=== PATIENT | male | born 1950 | race Caucasian/White ===

== ENCOUNTER → 2024-04-18 06:23 | Day surgery (SDC) | payer MEDICARE, OTHER, SELFPAY | LOC: GI 06:23 | PROVIDERS: ATTENDING PHYSICIAN Internal Medicine Gastroenterology | DX: Z12.11 Encounter for screening for malignant neoplasm of colon (principal); Z53.8 Procedure and treatment not carried out for other reasons; K40.90 Unilateral inguinal hernia, without obstruction or gangrene, not specified as recurrent; K57.30 Diverticulosis of large intestine without perforation or abscess without bleeding | CPT/HCPCS: G0121 ==

== ENCOUNTER 2024-06-14 06:37 | Day surgery (SDC) | payer MEDICARE, OTHER, SELFPAY ==
[2024-06-14] VITALS (11 sets, daily range): BP systolic 122–170; BP diastolic 69–94; BMI 25.8
[2024-06-14] MEDS: TYLENOL 1000 MG PO (10:17)
[2024-06-14] MEDS: NORMOSOL-R/PLASMALYTE-A 1000 IV (10:32)
--- NOTE | 2024-06-14 10:57 | W.SUR.PREOP ---
Pre-Operative Surgical Note
-
I have examined this patient prior to the performance of the scheduled procedure.
The patient's condition is unchanged from the time of the current History and
Physical and the patient is able to undergo the scheduled procedure.
--- NOTE | 2024-06-14 10:57 | HP.FOC2 ---
Focused History & Physical
Chief Complaint
HPI:
Chief Complaint: Left inguinal hernia
HPI / Indication for Planned Procedure:
Robotic left inguinal hernia repair with mesh
Relevant Past Medical History: Negative
Relevant Social History: Negative
Relevant Family History: Negative
Relevant Past Surgical History: Negative
Review of Systems
Review of Pertinent Systems: All Systems Negative
Medication
See Medication form for detailed medications: Yes
Medication List (including Herbals & OTC):
ezetimibe 10 mg tablet (Zetia) 10 mg PO DAILY 06/12/24
lisinopril 10 mg tablet 10 mg PO DAILY 06/12/24
metoprolol succinate 50 mg tablet,extended release 24 hr 50 mg PO DAILY 06/12/24
pravastatin 40 mg tablet 40 mg PO DAILY 06/12/24
tamsulosin 0.4 mg capsule 0.4 mg PO DAILY 06/12/24
Medications Reviewed: Yes
Allergies and Reactions
Patient has Allergies: Yes
Noted Allergies and Reactions:
Allergy/AdvReac Type Severity Reaction Status Date / Time
No Known Allergies Allergy Verified 06/14/24 10:09
Pertinent Physical Exam
All Other Systems: Negative
Head/Neck: Normal
Diagnosis / Assessment
This is a 73-year-old male with a mildly symptomatic left inguinal hernia containing colon which was preventing him from completing a colonoscopy
Plan / Procedure
Robotic left inguinal hernia repair with mesh
Anesthesia/Sedation to be done by Anesthesia Provider: Yes
--- NOTE | 2024-06-14 13:55 | W.IMMPOSTOP ---
Surgical Immed Post Op Note
-
Primary Surgeon: Al Zayas MD
Assisting Surgeon: None
Pre-op Diagnosis: Incarcerated left inguinal hernia
Post-op Diagnosis: Recurrent, incarcerated left inguinal hernia
Procedure Performed: Robotic recurrent incarcerated left inguinal hernia repair with mesh (CASSIDY approach)
Anesthesia Type: General
Specimen / Cultures: None
Estimated Blood Loss: 11 cc
Complications: None
Operative Findings: Recurrent left inguinal hernia with incarcerated sigmoid colon. Part of the sac was abandon onto his previous open mesh which was identified. Large aperture to the indirect inguinal space. No direct or femoral components. No
cord lipoma. Critical view of the MPO was achieved and then reinforced with an extra-large left Bard 3D max uncoated polypropylene mid weight mesh.
--- NOTE | 2024-06-14 13:57 | OR.RPT ---
Operative Report
Operative Report
Patient Name: Jax Canales
: 1950
Date of Operation: 06/14/2024
Preoperative Diagnosis: Incarcerated left inguinal hernia
Postoperative Diagnosis: Recurrent incarcerated left inguinal hernia
Procedure(s):
Robotic recurrent incarcerated left inguinal Hernia Repair with mesh, (CASSIDY approach)
Surgeon(s):
Dr. Zayas
Internet Consultant(s):
RAGINI Dee
Anesthesia: General
Estimated Blood Loss: 11 cc
Urine Output: None
Drains/Lines/Implants: XLarge 3D Max Bard mid weight uncoated polypropylene mesh
Specimens: None
Indication for surgery: This is a 73-year-old gentleman who presented to my clinic for evaluation of a large left inguinal hernia in the setting of prior appendectomy and a reported right inguinal hernia repair with mesh. His hernia was a mildly
symptomatic but large enough that it prevented completion of a colonoscopy so he was interested in surgical repair. The patient was noted to have an incarcerated but not strangulated left inguinal hernia on exam. Following review of therapeutic
options they have elected to undergo a minimally invasive repair.
Operative Findings: During the preparation of the surgical field, it was discovered the patient had a prior incision over the left groin consistent with a prior open repair. This was confirmed intraoperatively after identifying mesh. The patient
was noted to have a recurrent left inguinal hernia with incarcerated sigmoid colon. Part of the sac was abandon onto his previous open mesh which was identified. Large aperture to the indirect inguinal space. No direct or femoral components. No
cord lipoma. Critical view of the MPO was achieved and then reinforced with an extra-large left Bard 3D max uncoated polypropylene mid weight mesh.
Details of the operation:
The patient was brought to the Operating Room and placed in the supine position with the arms tucked. IV antibiotics were infused and Venodyne stockings placed. Following uneventful induction of general endotracheal anesthesia, an orogastric tube
were placed. The abdomen was prepped and draped in the usual sterile fashion. It was at this point identified an incision in the left groin consistent with her prior open repair. The abdomen was entered using a Veress technique which required 1
pass, pneumoperitoneum to 15 mmHg was obtained without difficulty. An 8mm trochar was passed through the abdominal wall roughly 20 cm cephalad to the inguinal canal. We then confirmed that no inadvertent injury was made while passing the trocar or
Veress needle. We then placed two additional 8 mm ports in the left upper and right upper quadrants. We then docked the robot with a Prograsper in the left hand port and monopolar scissors in the right. A large left indirect inguinal hernia
containing sigmoid colon was identified. We then began by creating a flap at the level of the ASIS laterally working our way medially to the medial umbilical fold. Staying onto the peritoneum we were able to circumferentially dissect around the
hernia sac and and peel it off of the underlying spermatic cord and testicular vessels, taking care to preserve them. We were able to free the sigmoid colon and reduce it. Medially we identified the midline pubis as well as Nimesh's ligament and
ensured to dissect 2 cm below the pubic rim over the bladder. After exposure of the entire myopectineal orifice we identified and reduced: A very large indirect inguinal hernia, no direct inguinal hernia, no femoral hernia, and no cord lipoma.
Part of the hernia sac was tethered to the previous mesh this was left behind and in an 'abandon the sac' fashion after confirming preservation of the spermatic cord and testicular vessels.
We then fixated an X-large 3D max mesh with a 2-0 Vicryl stitch at coopers medially and superior laterally. The flap was then closed with a running 2-0 barbed monocryl suture ensuring that the tail was cut flush with the medial fat pad so that no
barbs were exposed part of the redundant hernia sac was tethered up to the. Flap closure to decrease the space. During the closure of the flap an Angiocath was inserted and 20 cc of quarter percent Marcaine was instilled. The area in the
flap cavity was then evacuated of air confirming that the mesh was flush and there were no folds. A small rent in the peritoneum was noted and closed with 2-0 Vicryl. All needles and instruments were then removed and the robot was undocked. The
abdomen was then desufflated, and pneumoperitoneum evacuated. All skin sites were then closed with 4-0 Monocryl followed by Dermabond. Counts were correct and overall, the patient tolerated the procedure well and was taken to the Recovery Room
postoperatively in stable condition.
I was the attending physician and performed the procedure with assistance of the PA above. The assistance of RGAINI Dee was required due to the complexity of the procedure. During the procedure Luz Marina assisted with port placement, instrument
and needle exchanges, and closure of the wound. I was present for all portions of the case, excluding skin closure.
Al Zayas MD
[2024-06-14] MEDS: SUBLIMAZE 25 MCG IV (14:14)
== END 2024-06-14 15:43 | disposition home or self-care (01) ==
LOC: SDS 06:37
PROVIDERS: ATTENDING PHYSICIAN Surgery
DX: K40.31 Unilateral inguinal hernia, with obstruction, without gangrene, recurrent (principal); Z98.890 Other specified postprocedural states
CPT/HCPCS: 49651; C1781

== ENCOUNTER → 2024-07-23 15:02 | Outpatient (REF) | payer MEDICARE, OTHER, SELFPAY | LOC: RAD 15:02 | PROVIDERS: ATTENDING PHYSICIAN Surgery | DX: R10.32 Left lower quadrant pain (principal) | CPT/HCPCS: 74177; Q9967 ==

== ENCOUNTER 2024-10-29 06:25 | Day surgery (SDC) | payer MEDICARE, OTHER, SELFPAY | END 2024-10-29 12:01 | disposition home or self-care (01) | LOC: GI 06:25 | PROVIDERS: ATTENDING PHYSICIAN Internal Medicine Gastroenterology | DX: Z12.11 Encounter for screening for malignant neoplasm of colon (principal); K57.30 Diverticulosis of large intestine without perforation or abscess without bleeding; K64.8 Other hemorrhoids; D12.2 Benign neoplasm of ascending colon; K63.5 Polyp of colon | CPT/HCPCS: 45385; 88305 ==